=== PATIENT | male | born 1965 | race Hispanic/Latino ===

== ENCOUNTER 2017-08-03 09:25 | Emergency (ER) | payer BC, OTHER ==
[2017-08-03 10:29] VITALS: RESP 18
[2017-08-03] MEDS ORDERED: Tdap Vaccine 0.5 ml Vial (10-64 yrs) IM ONE (11:04)
[2017-08-03] MEDS ORDERED: Absorbable Gelatin Sponge Size 12-7 TP ONE (11:05)
--- NOTE | 2017-08-03 11:07 | ED PDOC ---
Upper Extremity Pain/Injury Time Seen by Provider: 08/03/17 11:05 Chief Complaint (Nursing): Finger,Hand,&Wrist Chief Complaint (Provider): finger avulsion History Per: Patient (52 y/o male here with right thumb avulsion that occurred today with use of mandolin. Is right handed. No difficulty with use of thumb. Unsure of tetanus status.) Past Medical History Reviewed: Historical Data, Nursing Documentation, Vital Signs Vital Signs: Last Vital Signs Temp Pulse Resp 18 08/03/17 10:24 BP Pulse Ox - Family History Family History: States: Unknown Family Hx - Home Medications Home Medications: Ambulatory Orders Medication Instructions Recorded Ibuprofen/Famotidine [Duexis 1 tab PO TID PRN 07/05/15 800-26.6 mg Tablet] Ketorolac Tromethamine [Toradol] 10 mg PO Q6H PRN #19 tab 07/05/15 Methocarbamol [Robaxin] 500 mg PO HS 07/05/15 diaZEpam [Valium] 5 mg PO QID #12 tab 07/05/15 Cyclobenzaprine [Cyclobenzaprine 10 mg PO TID PRN #15 tab 07/06/15 HCl] Hydrocodone/Acetaminophen [Obion 1 each PO Q4H PRN #15 tablet 07/06/15 5-325 Tablet] Cephalexin [Keflex] 500 mg PO QID #19 capsule 08/03/17 - Allergies Allergies/Adverse Reactions: Allergies Allergy/AdvReac Type Severity Reaction Status Date / Time No Known Allergies Allergy Verified 07/05/15 09:49 Review of Systems ROS Statement: Except As Marked, All Systems Reviewed And Found Negative Physical Exam - Reviewed Nursing Documentation Reviewed: Yes Vital Signs Reviewed: Yes - Physical Exam Appears: Positive for: Well, Non-toxic, No Acute Distress Head Exam: Positive for: ATRAUMATIC, NORMAL INSPECTION, NORMOCEPHALIC Skin: Positive for: Normal Color, Warm, DRY Eye Exam: Positive for: EOMI, Normal appearance, PERRL ENT: Positive for: Normal ENT Inspection Neck: Positive for: Normal, Painless ROM Cardiovascular/Chest: Positive for: Regular Rate, Rhythm Respiratory: Positive for: CNT, Normal Breath Sounds Gastrointestinal/Abdominal: Positive for: Normal Exam, Bowel Sounds, Soft Back: Positive for: Normal Inspection Extremity: Positive for: Normal ROM, Other (avulsion of distal tip of thumb right.) Neurologic/Psych: Positive for: Alert, Oriented - Progress ED Course And Treament: tdap 0.5 ml IM x 1 dose keflex 500mg x 1 dose Verbal consent prior to procedure. Gelfoam placed on wound for control of bleeding. Disposition - Clinical Impression Clinical Impression: Finger avulsion - Patient ED Disposition Is Patient to be Admitted: No - Disposition Disposition: Routine/Home Disposition Time: 11:30 Condition: FAIR Additional Instructions: RETURN TO ED/PMD/URGENT CARE IN 24-48 HOURS FOR RE-EVALUATION OF WOUND. Prescriptions: Cephalexin [Keflex] 500 mg PO QID #19 capsule Instructions: Amputation of the Finger or Fingertip, Amputation of the Finger or Fingertip (DC) Forms: [facility] ([place])
== END 2017-08-03 11:30 | disposition home or self-care (01) ==
LOC: H.ER 09:25
DX: S61.101A Unspecified open wound of right thumb with damage to nail, initial encounter (principal); W26.8XXA Contact with other sharp object(s), not elsewhere classified, initial encounter; Y92.89 Other specified places as the place of occurrence of the external cause